=== PATIENT | male | born 1995 | race Caucasian/White ===

== ENCOUNTER 2021-05-08 05:03 | Emergency (ER) | payer SELFPAY ==
[~2021-05-08] VITALS: Ht 180.3 cm; Wt 65.8 kg
== END 2021-05-08 07:56 | disposition home or self-care (01) ==
LOC: ER 05:03
DX: R45.851 Suicidal ideations (principal); F17.210 Nicotine dependence, cigarettes, uncomplicated
CPT/HCPCS: 99285